=== PATIENT | female | born 1970 | race Caucasian/White ===

== ENCOUNTER 2018-09-23 08:18 | Emergency (ER) | payer MEDICAID, OTHER ==
[2018-09-23] MEDS ORDERED: KETOROLAC TROMETHAMINE 30 MG/ML SOL IM ONE (08:53)
[2018-09-23 08:54] VITALS: TEMP 97.4
[2018-09-23] MEDS ORDERED: KETOROLAC TROMETHAMINE 30 MG/ML SOL ONE (08:54)
[2018-09-23 09:55] VITALS: BP 94/63; PULSE 72; RESP 14; O2SAT 100
== END 2018-09-23 10:07 | disposition home or self-care (01) | DRG 605 ==
LOC: ED 08:18 → SUPCPDRO 08:18 → ED 10:07
DX: S90.31XA Contusion of right foot, initial encounter (principal)
CPT/HCPCS: 73630; 96372; 99282; 99283; J1885

== ENCOUNTER 2018-09-25 11:37 | Emergency (ER) | payer MEDICAID ==
[2018-09-25 12:07] VITALS: RESP 18
[2018-09-25 16:00] VITALS: BP 121/94; PULSE 96; TEMP 98.6; O2SAT 94
[2018-09-25 16:16] LABS: CARBON DIOXIDE 21.5 mEq/L (21-32)
== END 2018-09-25 15:45 | disposition home or self-care (01) | DRG 392 ==
LOC: ED 11:37
DX: R19.7 Diarrhea, unspecified (principal); E03.9 Hypothyroidism, unspecified
CPT/HCPCS: 36415; 80051; 84443; 99282; 99283